=== PATIENT | female | born 1965 | race Caucasian/White ===

== ENCOUNTER → 2022-08-20 10:44 | Outpatient (BNVA) | payer BC, SELFPAY | PROVIDERS: PCP Nurse Practitioner; Visit Provider Internal Medicine Endocrinology, Diabetes & Metabolism | DX: R79.89 Other specified abnormal findings of blood chemistry (principal) ==

== ENCOUNTER → 2022-12-23 10:24 | Outpatient (REF) | payer BC, SELFPAY ==
--- NOTE | ~2022-12-23 | NM_ITS ---
EXAMINATION: THYROID UPTAKE AND SCAN CLINICAL INFORMATION: Other specified abnormal findings of blood chemistry. The patient's TSH level was 0.27 mIU/ml on 11/08/2022 (normal range 0.32-5.0) COMPARISON: No previous thyroid imaging studies are available for comparison. TECHNIQUE: Following the oral administration of 267 microcuries of I-123 sodium iodide, thyroid uptake was performed and expressed as a percentage of the administrated dose. Gamma scintillation camera images of the thyroid in the anterior and right and left anterior oblique views were obtained using a pinhole collimator following the administration of 10 mCi Tc-99m pertechnetate. The images were acquired in a 128 x 128 matrix. FINDINGS: The uptake is 10.9% at 4 hours and 38.7% at 24 hours (Normal radioiodine uptake at 24 hours is 10% to 30%). The radioiodine uptake is mildly elevated. The images are suboptimal because they were acquired in a 128 x 128 matrix, rather than the usual 512 x 512 matrix, but are adequate for interpretation. The radiopertechnetate thyroid scintigram demonstrates the thyroid gland to be normal in size, shape, and position. The gland is very heterogeneous with multiple rounded or ovoid shaped foci of activity present in both lobes. The right lobe is significantly larger and has more numerous nodules on the left. A dominant nodule is not present. A single anterior radioiodine image obtained at the time of the 24-hour uptake measurement is similar to the radio pertechnetate image but does not delineate the detail within the gland as well. 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 The radioiodine uptake is mildly elevated.
== END ==
LOC: HO.NUCMED 10:24
PROVIDERS: PCP Student in an Organized Health Care Education/Training Program; Visit Provider Internal Medicine Endocrinology, Diabetes & Metabolism
DX: R79.89 Other specified abnormal findings of blood chemistry (principal)
CPT/HCPCS: 78014; A9512; A9516

== ENCOUNTER → 2022-12-30 15:59 | Outpatient (BNVA) | payer BC, SELFPAY | PROVIDERS: PCP Student in an Organized Health Care Education/Training Program; Visit Provider Internal Medicine Endocrinology, Diabetes & Metabolism ==

== ENCOUNTER 2023-01-18 15:55 | Outpatient (REF) | payer BC, SELFPAY ==
--- NOTE | ~2023-01-18 | US_ITS ---
EXAMINATION: US THYROID CLINICAL INFORMATION: Other specified abnormal findings of blood chemistry. COMPARISON: None available. TECHNIQUE: Linear transducer grayscale and color Doppler examination with attention to the region of the thyroid. FINDINGS: SIZE: Measurements of the thyroid lobes and nodules are given in sagittal, anteroposterior and transverse dimensions respectively. Right Thyroid Lobe: 4.4 x 1.2 x 1.4 cm, volume 3.9 mL. Parenchyma: The gland echotexture is homogeneous. Thyroid vascularity is normal. Left Thyroid Lobe: 3.7 x 1.0 x 1.4 cm, volume 2.7 mL. Parenchyma: The gland echotexture is homogeneous. Thyroid vascularity is normal. Isthmus: 0.3 cm in maximum AP dimension. Estimated total number of nodules greater than or equal to 1 cm: 1. Tuber Machine Operator Helper nodules are described as follows: 1. Location: Right inferior isthmus. Size: 1.8 x 0.9 x 1.1 cm, volume 0.9 mL. Nodule characteristics: Composition: Solid (2). Echogenicity: Isoechoic (1). Shape: Not taller than wide (0). Margins: Smooth (0). Echogenic Foci: None (0). ACR TI-RADS total points: 3 ACR TI-RADS category: 3 2. Location: Right superior. Size: 0.8 x 0.6 x 0.7 cm, volume 0.2 mL. Nodule characteristics: Composition: Solid (2). Echogenicity: Isoechoic (1). Shape: Not taller than wide (0). Margins: Smooth (0). Echogenic Foci: None (0). ACR TI-RADS total points: 3 ACR TI-RADS category: 3 3. Location: Right mid. Size: 0.8 x 0.7 x 0.7 cm, volume 0.2 mL. Nodule characteristics: Composition: Solid (2). Echogenicity: Isoechoic (1). Shape: Not taller than wide (0). Margins: Irregular (2). Echogenic Foci: Macrocalcifications (1). ACR TI-RADS total points: 6 ACR TI-RADS category: 4 4. Location: Right inferior. Size: 0.6 x 0.4 x 0.6 cm, volume 0.07 mL. Nodule characteristics: Composition: Solid (2). Echogenicity: Isoechoic (1). Shape: Not taller than wide (0). Margins: Smooth (0). Echogenic Foci: Punctate echogenic foci (3). ACR TI-RADS total points: 6 ACR TI-RADS category: 4 5. Location: Left mid. Size: 0.9 x 0.7 x 0.8 cm, volume 0.3 mL. Nodule characteristics: Composition: Solid (2). Echogenicity: Isoechoic (1). Shape: Not taller than wide (0). Margins: Smooth (0). Echogenic Foci: Punctate echogenic foci (3). ACR TI-RADS total points: 6 ACR TI-RADS category: 4 NODES: No lymphadenopathy is seen in the tissue surrounding the thyroid gland. US/US thyroid IMPRESSION: Multiple thyroid nodules are seen, as detailed. Recommend continued thyroid ultrasound surveillance. ACR TI-RADS RECOMMENDATION REFERENCE: Ultrasound-guided fine-needle aspiration, followup ultrasound, no further follow up. * TR1 (0 point) and TR2 (2 points): No FNA or follow up. * TR3 (3 points): FNA if more than or equal to 2.5 cm in maximum dimension, followup ultrasound in 1, 3 and 5 years if 1.5 to 2.4 cm in maximum dimension. * TR4 (4-6 points): FNA if more than or equal to 1.5 cm in maximum dimension, followup ultrasound in 1, 2, 3 and 5 years if 1 to 1.4 cm in maximum dimension. * TR5 (more than or equal to 7 points): FNA if more than or equal to 1 cm in maximum dimension, followup ultrasound every year for 5 years if 0.5 to 0.9 cm in maximum dimension. * TR3, TR4 or TR5 nodules that are below the size threshold for followup receive no follow up.
[2023-01-18 18:03] LABS: Free T4 (Free Thyroxine) 0.72 ng/dL (0.71-1.85); Thyroid Stimulating Hormone 0.53 uIU/mL (0.32-4.0)
[2023-01-19 17:44] LABS: Triiodothyronine T3 Free 3.3 pg/mL (2.3-4.2)
[2023-01-21 20:13] LABS: Thyrotropin Receptor Antibody <1.00 IU/L (<=2.00)
== END 2023-01-18 15:56 | disposition home or self-care (01) ==
LOC: HO.US 15:55
PROVIDERS: Visit Provider Internal Medicine Endocrinology, Diabetes & Metabolism
DX: R94.6 Abnormal results of thyroid function studies (principal)
CPT/HCPCS: 36415; 76536; 83520; 84439; 84443; 84481

== ENCOUNTER 2023-03-16 16:28 | Outpatient (AMB) | payer BC, SELFPAY ==
--- NOTE | 2023-03-16 16:29 | MHC.OFFVIS ---
Intake Vital Signs 03/16/23 16:31 Height 5 ft 1 in Weight 143 lb 11.862 oz BMI 27.2 BP 102/58 L Blood Pressure Location Lt brachial Position Sitting Pulse 80 Intake Visit Reasons: f/u hyperthyroidism Intake Note: Patient present today for Hyperthyroidism follow up visit. Skiff Operator Required: No Accompanied by: Self / Same As Patient Allergies cashew nut Allergy (Severe, Verified 03/16/23 16:34) Anaphylaxis Sulfa (Sulfonamide Antibiotics) Allergy (Severe, Verified 03/16/23 16:34) Anaphylaxis venom-honey bee Allergy (Severe, Verified 03/16/23 16:34) Hives Penicillins Adverse Reaction (Severe, Verified 03/16/23 16:34) Anaphylaxis tree nut Allergy (Severe, Uncoded 12/30/22 16:03) respiratory distress HPI HPI Comments History of Present Illness Details 57 YO F with who is seen in consultation for low TSHt the request of PCP. Just diagnosed . Currently has dysphagia but denies hoarseness of voice. Denies sensation of swelling in the neck or difficulty breathing while lying flat. Denies any tenderness in the neck. Denies any palpitations, tremors, weight loss, frequent bowel movements. Denies any ocular complaints, blurred or double vision. Denies hair loss, dry skin, +heat but no cold intolerance, weight gain, confusion. Denies any history of head or neck irradiation. Denies any family history of thyroid cance or thyroid disease . Thyroid uptake and scan: The uptake is 10.9% at 4 hours and 38.7% at 24 hours (Normal radioiodine uptake at 24 hours is 10% to 30%). The radioiodine uptake is mildly elevated. The images are suboptimal because they were acquired in a 128 x 128 matrix, rather than the usual 512 x 512 matrix, but are adequate for interpretation. The radiopertechnetate thyroid scintigram demonstrates the thyroid gland to be normal in size, shape, and position. The gland is very heterogeneous with multiple rounded or ovoid shaped foci of activity present in both lobes. The right lobe is significantly larger and has more numerous nodules on the left. A dominant nodule is not present Thyroid US: Use of biotin? No Labs: Thyroid ultrasound show bilateral nodules with no worrisome characteristics largest is on the right [address] [address] Ultrasound Report Signed Patient: Elizabeth Villegas MR#: [id number] : 1965 Acct:[id number] Age/Sex: 57 / F ADM Date: 01/18/23 Loc: HO.US Attending Dr: Adama Gibbs MD Ordering Physician: Adama Gibbs MD Date of Service: 01/18/23 Procedure(s): US thyroid Accession Number(s): [id number] cc: Adama Gibbs MD~ EXAMINATION: US THYROID CLINICAL INFORMATION: Other specified abnormal findings of blood chemistry. COMPARISON: None available. TECHNIQUE: Linear transducer grayscale and color Doppler examination with attention to the region of the thyroid. FINDINGS: ? SIZE: Measurements of the thyroid lobes and nodules are given in sagittal, anteroposterior and transverse dimensions respectively. Right Thyroid Lobe: 4.4 x 1.2 x 1.4 cm, volume 3.9 mL. Parenchyma: The gland echotexture is homogeneous. Thyroid vascularity is normal. Left Thyroid Lobe: 3.7 x 1.0 x 1.4 cm, volume 2.7 mL. Parenchyma: The gland echotexture is homogeneous. Thyroid vascularity is normal. Isthmus: 0.3 cm in maximum AP dimension. Estimated total number of nodules greater than or equal to 1 cm: 1. Ict Systems Test Engineer nodules are described as follows: 1. Location: Right inferior isthmus. ?? ? Size: 1.8 x 0.9 x 1.1 cm, volume 0.9 mL. ?? ? Nodule characteristics: ?? ? Composition: Solid (2). ?? ? Echogenicity: Isoechoic (1). ?? ? Shape: Not taller than wide (0). ?? ? Margins: Smooth (0). ?? ? Echogenic Foci: None (0). ?? ? ACR TI-RADS total points: 3 ?? ? ACR TI-RADS category: 3 2. Location: Right superior. ?? ? Size: 0.8 x 0.6 x 0.7 cm, volume 0.2 mL. ?? ? Nodule characteristics: ?? ? Composition: Solid (2). ?? ? Echogenicity: Isoechoic (1). ?? ? Shape: Not taller than wide (0). ?? ? Margins: Smooth (0). ?? ? Echogenic Foci: None (0). ?? ? ACR TI-RADS total points: 3 ?? ? ACR TI-RADS category: 3 3. Location: Right mid. ?? ? Size: 0.8 x 0.7 x 0.7 cm, volume 0.2 mL. ?? ? Nodule characteristics: ?? ? Composition: Solid (2). ?? ? Echogenicity: Isoechoic (1). ?? ? Shape: Not taller than wide (0). ?? ? Margins: Irregular (2). ?? ? Echogenic Foci: Macrocalcifications (1). ?? ? ACR TI-RADS total points: 6 ?? ? ACR TI-RADS category: 4 4. Location: Right inferior. ?? ? Size: 0.6 x 0.4 x 0.6 cm, volume 0.07 mL. ?? ? Nodule characteristics: ?? ? Composition: Solid (2). ?? ? Echogenicity: Isoechoic (1). ?? ? Shape: Not taller than wide (0). ?? ? Margins: Smooth (0). ?? ? Echogenic Foci: Punctate echogenic foci (3). ?? ? ACR TI-RADS total points: 6 ?? ? ACR TI-RADS category: 4 5. Location: Left mid. ?? ? Size: 0.9 x 0.7 x 0.8 cm, volume 0.3 mL. ?? ? Nodule characteristics: ?? ? Composition: Solid (2). ?? ? Echogenicity: Isoechoic (1). ?? ? Shape: Not taller than wide (0). ?? ? Margins: Smooth (0). ?? ? Echogenic Foci: Punctate echogenic foci (3). ?? ? ACR TI-RADS total points: 6 ?? ? ACR TI-RADS category: 4 NODES: No lymphadenopathy is seen in the tissue surrounding the thyroid gland. [facility] Medical History (Updated 08/20/22 @ 11:02 by Adama Gibbs MD) Low TSH level Surgical History Hx of section Hx of tooth extraction Hx of wisdom tooth extraction Family History Mother Hypertension Alzheimer disease Vascular dementia Father Hypertension Brother Adenoma of pituitary Maternal Grandmother Breast cancer Maternal Aunt Multiple myeloma Paternal Grandfather Lung cancer Social History Household Members: Spouse Household Members Other:: , 1 child Alcohol intake: current Alcohol intake frequency: holidays/special occasions only Patient Tobacco Use Status: Never used Tobacco Physical Exam Vital Signs: BMI result Body Mass Index 27.2 HEENT reveals absence of lid lag , stare or proptosis or eyebrow loss. Thyroid gland measure 15 gms . No nodules or tenderness palpated. There is no cervical adenopathy palpated. Lungs CTA. Heart S1, S2 Reg R/R -M/R/G. Abdominal exam benign. Skin exam reveals absence of dryness or thyroid dermopathy or vitiligo. Nail exam reveals absence of thyroid acropachy or oncholysis. Neurologic exam reveals 2+ reflexes . Muscle Strength is 5/5 proximally. There are no tremors in upper extremities. Assessment & Plan Assessment & Plan (1) Low TSH level: Code(s): R79.89 - Other specified abnormal findings of blood chemistry Plan: This is a 56-year-old female with a history of low TSH. Uptake and scan showed mildly increase in uptake. Antibodies were negative and thyroid levels normalized. Patient appears to be clinically biochemically euthyroid The plan is to have the patient follow-up with primary care provider. A follow-up thyroid ultrasound should be obtained about 1-2 years time if there is any significant change in the size of the nodule or change in the characteristics of the nodule, the patient returned back to endocrinology Coding Level of Care Code Est Pt Level 3 (89220) Diagnoses Low TSH level R79.89
[2023-03-16 16:31] VITALS: BP 102/58; PULSE 80; BMI 27.2
== END 2023-03-16 16:48 | disposition home or self-care (01) ==
PROVIDERS: PCP Student in an Organized Health Care Education/Training Program; Visit Provider Internal Medicine Endocrinology, Diabetes & Metabolism
DX: R79.89 Other specified abnormal findings of blood chemistry (principal)
CPT/HCPCS: 99213

== ENCOUNTER → 2023-03-16 16:28 | Outpatient (BNVA) | payer BC, SELFPAY | PROVIDERS: Visit Provider Internal Medicine Endocrinology, Diabetes & Metabolism ==